=== PATIENT | female | born 1955 | race Caucasian/White ===

== ENCOUNTER 2019-06-21 08:00 | Outpatient (CLI) | payer MEDICARE, OTHER ==
[2019-06-21 12:32] LABS: BASOPHILS % (AUTO) 0.4 %; EOSINOPHILS # (AUTO) 0.2 10^3/uL (0.0-0.7); EOSINOPHILS % (AUTO) 3.1 %; HGB - HEMOGLOBIN 14.7 g/dL (12.0-16.0); LYMPHOCYTES # (AUTO) 1.8 10^3/uL (1.5-3.5); LYMPHOCYTES % (AUTO) 37.1 %; MEAN CORPUSCULAR HEMOGLOBIN 29.8 pg (27.0-31.0); MEAN CORPUSCULAR VOLUME 87.6 fL (81.0-99.0); MEAN PLATELET VOLUME 10.1 fL (7.9-10.8); MONOCYTES # (AUTO) 0.5 10^3/uL (0.0-1.0); MONOCYTES % (AUTO) 11.1 %; NEUTROPHILS # (AUTO) 2.4 10^3/uL (1.5-6.6); NEUTROPHILS % (AUTO) 48.1 %; PLT - PLATELET COUNT 219 10^3/uL (130-450); RED BLOOD COUNT 4.93 10^6/uL (4.20-5.40); RED CELL DISTRIBUTION WIDTH 12.1 % (12.0-15.0); WHITE BLOOD COUNT 4.9 x10^3/uL (4.8-10.8)
[2019-06-21 13:15] LABS: ALBUMIN 4.3 g/dL (3.2-5.5); ALBUMIN/GLOBULIN RATIO 1.4 (1.0-2.2); ALKALINE PHOSPHATASE 78 IU/L (42-121); ALT ALANINE AMINOTRANSFERASE 20 IU/L (10-60); AST ASPARTATE AMINOTRANSFERASE 20 IU/L (10-42); BUN - BLOOD UREA NITROGEN 28 mg/dL (6-20); CALCIUM 9.8 mg/dL (8.5-10.3); CARBON DIOXIDE - CO2 29 mmol/L (21-32); CHLORIDE 95 mmol/L (101-111); CHOL/HDL RATIO 3.6 (<4.4); CHOLESTEROL 190 mg/dL; CREATININE 1.3 mg/dL (0.4-1.0); GFR - MDRD 41 (>89); GLUCOSE 283 mg/dL (70-100); HDL CHOLESTEROL 53 mg/dL; LDL CHOLESTEROL,CALCULATED 107 mg/dL; SODIUM 135 mmol/L (135-145); TOTAL PROTEIN 7.4 g/dL (6.7-8.2); VLDL CHOLESTEROL 30 mg/dL
[2019-06-21 13:37] LABS: HB2 TOTAL 15.5 g/dL; HEMOGLOBIN A1C 1.88 g/dL; HEMOGLOBIN A1C % 13.2 % (4.6-6.2)
== END 2019-06-21 23:59 | disposition home or self-care (01) ==
LOC: LAB.WCP 08:00
PROVIDERS: ATTEND Nurse Practitioner Family
DX: E78.5 Hyperlipidemia, unspecified (principal); E11.9 Type 2 diabetes mellitus without complications; I10 Essential (primary) hypertension
CPT/HCPCS: 36415; 80053; 80061; 83036; 83721; 84443; 85025

== ENCOUNTER 2019-07-05 10:54 | Outpatient (CLI) | payer MEDICARE, OTHER ==
--- NOTE | 2019-07-14 08:56 | Mammography Report ---
Reason: ROUTINE MAMMO Procedure Date: 07/05/2019 Accession Number: [id number] / [id number] Procedure: MGN - Screening Mammo Dig Bilat CPT Code: Final Report FULL RESULT: EXAM: Screening Mammo Dig Bilat DATE: 07/05/2019 11:25 AM CLINICAL HISTORY: Screening encounter. TECHNIQUE: (B) - Bilateral CC and MLO views were obtained. COMPARISON: 06/04/2014. PARENCHYMAL PATTERN: (A) - The breast(s) demonstrate(s) scattered fibroglandular densities. FINDINGS: There are coarse typically benign calcifications. There are no suspicious masses, calcifications, or areas of distortion. IMPRESSION: Benign findings. BI-RADS category 2. RECOMMENDATION: (ANNUAL) - Recommend routine annual screening mammography. BI-RADS CATEGORY: (2) - Benign Findings. STANDARD QUALIFYING STATEMENTS: 1. This examination was not reviewed with the aid of Computer-Aided Detection (CAD). 2. A negative or benign imaging report should not preclude biopsy if clinically suspicious findings are present. 3. Dense breasts may obscure an underlying neoplasm. 4. This examination was reviewed without the aid of 3D breast imaging (tomosynthesis).
== END 2019-07-05 10:55 | disposition home or self-care (01) ==
LOC: DI.N 10:54
DX: Z12.31 Encounter for screening mammogram for malignant neoplasm of breast (principal)
CPT/HCPCS: 77067

== ENCOUNTER 2019-09-27 08:00 | Outpatient (CLI) | payer MEDICARE, OTHER ==
[2019-09-27 19:34] LABS: BILIRUBIN,URINE NEGATIVE (NEGATIVE); GLUCOSE, URINE (UA) >=1000 mg/dL (NEGATIVE); KETONES,URINE (UA) NEGATIVE (NEGATIVE); LEUKOCYTE ESTERASE, URINE NEGATIVE (NEGATIVE); NITRITE,URINE NEGATIVE (NEGATIVE); OCCULT BLOOD,URINE NEGATIVE (NEGATIVE); PROTEIN,URINE NEGATIVE (NEGATIVE); UROBILINOGEN,URINE 0.2 (NORMAL) E.U./dL (NORMAL)
[2019-09-27 19:40] LABS: HB2 TOTAL 14.4 g/dL; HEMOGLOBIN A1C 1.2 g/dL; HEMOGLOBIN A1C % 9.8 % (4.6-6.2)
[2019-09-27 19:41] LABS: BACTERIA,URINE Rare /HPF (None Seen); CLARITY,URINE HAZY (CLEAR); RBC,URINE 0-5 /HPF (0-5); SQUAMOUS EPITHELIAL CELL,UR MOD Squamous (<= Few)
[2019-09-27 19:54] LABS: CALCIUM 9.7 mg/dL (8.5-10.3); CREATININE 1.4 mg/dL (0.4-1.0)
[2019-09-27 20:00] LABS: CREATININE,URINE 149.6 mg/dL; MICROALBUMIN,URINE 0.6 mg/dL (0-300.0)
[2019-09-27 20:39] LABS: ALBUMIN 3.9 g/dL (3.2-5.5); CALCIUM 9.5 mg/dL (8.5-10.3); CREATININE 1.4 mg/dL (0.4-1.0); PHOSPHORUS 3.3 mg/dL (2.5-4.6)
== END 2019-09-27 23:59 | disposition home or self-care (01) ==
LOC: LAB.WCP 08:00
PROVIDERS: ATTEND Nurse Practitioner Family
DX: E11.22 Type 2 diabetes mellitus with diabetic chronic kidney disease (principal); N18.3 Chronic kidney disease, stage 3 (moderate)
CPT/HCPCS: 36415; 80048; 80069; 81001; 82040; 82043; 82570; 83036; 83970; 84100; 87086

== ENCOUNTER 2020-07-16 08:00 | Outpatient (CLI) | payer MEDICARE, OTHER ==
[2020-07-16 18:09] LABS: BASOPHILS % (AUTO) 0.5 %; EOSINOPHILS # (AUTO) 0.2 10^3/uL (0.0-0.7); EOSINOPHILS % (AUTO) 2.5 %; HGB - HEMOGLOBIN 13.3 g/dL (12.0-16.0); LYMPHOCYTES # (AUTO) 1.8 10^3/uL (1.5-3.5); LYMPHOCYTES % (AUTO) 29.8 %; MEAN CORPUSCULAR HEMOGLOBIN 29.9 pg (27.0-31.0); MEAN CORPUSCULAR HGB CONC 33.2 g/dL (32.0-36.0); MEAN CORPUSCULAR VOLUME 90.1 fL (81.0-99.0); MEAN PLATELET VOLUME 9.9 fL (7.9-10.8); MONOCYTES # (AUTO) 0.4 10^3/uL (0.0-1.0); NEUTROPHILS # (AUTO) 3.7 10^3/uL (1.5-6.6); NEUTROPHILS % (AUTO) 59.9 %; PLT - PLATELET COUNT 235 10^3/uL (130-450); RED BLOOD COUNT 4.45 10^6/uL (4.20-5.40); RED CELL DISTRIBUTION WIDTH 12.6 % (12.0-15.0); WHITE BLOOD COUNT 6.1 x10^3/uL (4.8-10.8)
[2020-07-16 18:25] LABS: HEMOGLOBIN A1c% 7.5 % (4.27-6.07)
[2020-07-16 19:41] LABS: ALBUMIN 4.1 g/dL (3.2-5.5); ALBUMIN/GLOBULIN RATIO 1.4 (1.0-2.2); ALKALINE PHOSPHATASE 75 IU/L (42-121); ALT ALANINE AMINOTRANSFERASE 33 IU/L (10-60); AST ASPARTATE AMINOTRANSFERASE 26 IU/L (10-42); BILIRUBIN,TOTAL 0.6 mg/dL (0.2-1.0); BUN - BLOOD UREA NITROGEN 22 mg/dL (6-20); CALCIUM 9.4 mg/dL (8.5-10.3); CARBON DIOXIDE - CO2 28 mmol/L (21-32); CHLORIDE 101 mmol/L (101-111); CHOL/HDL RATIO 2.9 (<4.4); CHOLESTEROL 160 mg/dL; CREATININE 1.5 mg/dL (0.4-1.0); GLUCOSE 234 mg/dL (70-100); HDL CHOLESTEROL 55 mg/dL; LDL CHOLESTEROL,CALCULATED 63 mg/dL; LDL/HDL RATIO 1.1 (<4.4); SODIUM 140 mmol/L (135-145); VLDL CHOLESTEROL 42 mg/dL
== END 2020-07-16 23:59 | disposition home or self-care (01) ==
LOC: LAB.WCP 08:00
PROVIDERS: ATTEND Nurse Practitioner Family
DX: I12.9 Hypertensive chronic kidney disease with stage 1 through stage 4 chronic kidney disease, or unspecified chronic kidney disease (principal); E11.22 Type 2 diabetes mellitus with diabetic chronic kidney disease; N18.30 Chronic kidney disease, stage 3 unspecified; E87.6 Hypokalemia; E78.5 Hyperlipidemia, unspecified
CPT/HCPCS: 36415; 80053; 80061; 83036; 83721; 84443; 85025

== ENCOUNTER 2022-05-01 07:29 | Outpatient (CLI) | payer MEDICARE, OTHER ==
[2022-05-01 12:54] LABS: ALBUMIN 3.9 g/dL (3.2-5.5); ALBUMIN/GLOBULIN RATIO 1.3 (1.0-2.2); BILIRUBIN,TOTAL 0.7 mg/dL (0.2-1.0); CALCIUM 9.8 mg/dL (8.5-10.3); CREATININE 1.4 mg/dL (0.4-1.0); POTASSIUM 4.1 mmol/L (3.5-5.0)
[2022-05-01 19:48] LABS: ESTIMATED AVERAGE GLUCOSE 200 mg/dL (70-100); HEMOGLOBIN A1c% 8.6 % (4.27-6.07)
== END 2022-05-01 07:30 | disposition home or self-care (01) ==
LOC: LAB.N 07:29
PROVIDERS: ATTEND Nurse Practitioner
DX: E11.22 Type 2 diabetes mellitus with diabetic chronic kidney disease (principal); N18.32 Chronic kidney disease, stage 3b
CPT/HCPCS: 36415; 80053; 83036

== ENCOUNTER 2022-06-23 08:14 | Outpatient (CLI) | payer MEDICARE, OTHER ==
[2022-06-23 11:44] LABS: BASOPHILS % (AUTO) 0.5 %; EOSINOPHILS # (AUTO) 0.3 10^3/uL (0.0-0.7); HCT - HEMATOCRIT 41.7 % (37.0-47.0); HGB - HEMOGLOBIN 13.8 g/dL (12.0-16.0); LYMPHOCYTES # (AUTO) 2.2 10^3/uL (1.5-3.5); LYMPHOCYTES % (AUTO) 37.6 %; MEAN CORPUSCULAR HEMOGLOBIN 29.4 pg (27.0-31.0); MEAN CORPUSCULAR HGB CONC 33.1 g/dL (32.0-36.0); MEAN CORPUSCULAR VOLUME 88.9 fL (81.0-99.0); MEAN PLATELET VOLUME 9.7 fL (7.9-10.8); MONOCYTES # (AUTO) 0.5 10^3/uL (0.0-1.0); MONOCYTES % (AUTO) 8.9 %; NEUTROPHILS # (AUTO) 2.7 10^3/uL (1.5-6.6); NEUTROPHILS % (AUTO) 47.7 %; PLT - PLATELET COUNT 250 10^3/uL (130-450); RED BLOOD COUNT 4.69 10^6/uL (4.20-5.40); RED CELL DISTRIBUTION WIDTH 12.4 % (12.0-15.0); WHITE BLOOD COUNT 5.8 x10^3/uL (4.8-10.8)
[2022-06-23 11:59] LABS: CALCIUM 9.6 mg/dL (8.5-10.3); CREATININE 1.5 mg/dL (0.4-1.0); POTASSIUM 3.7 mmol/L (3.5-5.0)
[2022-06-23 13:16] LABS: CREATININE,URINE 530.8 mg/dL; MICROALBUM/CREATININE RATIO,UR 7.5 ug/mg (<30.0)
== END 2022-06-23 08:15 | disposition home or self-care (01) ==
LOC: LAB.N 08:14
PROVIDERS: ATTEND Internal Medicine Nephrology
DX: N18.32 Chronic kidney disease, stage 3b (principal)
CPT/HCPCS: 36415; 80048; 82043; 82570; 85025

== ENCOUNTER 2022-07-29 08:14 | Outpatient (CLI) | payer MEDICARE, OTHER ==
[2022-07-29 12:15] LABS: ESTIMATED AVERAGE GLUCOSE 223 mg/dL (70-100); HEMOGLOBIN A1c% 9.4 % (4.27-6.07)
== END 2022-07-29 08:15 | disposition home or self-care (01) ==
LOC: LAB.N 08:14
PROVIDERS: ATTEND Nurse Practitioner
DX: E11.9 Type 2 diabetes mellitus without complications (principal)
CPT/HCPCS: 36415; 83036

== ENCOUNTER 2022-08-03 13:15 | Outpatient (CLI) | payer MEDICARE, OTHER ==
--- NOTE | 2022-08-04 15:22 | Mammography Report ---
BILATERAL DIGITAL SCREENING MAMMOGRAM 3D/2D: 08/03/2022 CLINICAL: Family history of breast cancer. Routine screening. Comparison is made to exams dated: 07/05/2019 mammogram and 06/04/2014 mammogram - Merged with [facility]. Both breasts are almost entirely fatty (category a/<25% glandular tissue). There are benign masses in both breasts. No significant masses, calcifications, or other findings are seen in either breast. There has been no significant interval change. IMPRESSION: BENIGN There is no mammographic evidence of malignancy. A 1 year screening mammogram is recommended. Based on the Tyrer Cuzick model (a risk assessment model) the patients lifetime risk is 6.5% and her 10 year risk is 3.8%. According to the ACR, ACS, and NCCN guidelines, an annual breast MRI exam ivonne g with mammogram is recommended if the patients lifetime risk is 20% or greater. This exam was interpreted at Station ID: [id number]. NOTE: For mammograms, a report in lay terms will be sent to the patient. Approximately 15% of breast malignancies will not be visualized mammographically. In the management of a palpable breast mass, a negative mammogram must not discourage biopsy of a clinically suspicious lesion. Electronically Signed By: Natan schneider/vandana:08/03/2022 14:30:14 ACR BI-RADS Category 2: Benign Finding(s) 3342F PARENCHYMAL PATTERN: (F) - The breast(s) demonstrate(s) diffuse fatty replacement. BI-RADS CATEGORY: (2) - 2 RECOMMENDATION: (ANNUAL) - Recommend routine annual screening mammography. 20230804 1 year screening LATERALITY: (B)
== END 2022-08-03 13:16 | disposition home or self-care (01) ==
LOC: DI.N 13:15
DX: Z12.31 Encounter for screening mammogram for malignant neoplasm of breast (principal); Z80.3 Family history of malignant neoplasm of breast

== ENCOUNTER 2022-08-03 15:42 | Outpatient (CLI) | payer MEDICARE, OTHER ==
--- NOTE | 2022-08-03 16:09 | XRAY Report ---
PROCEDURE: Foot 3 View LT INDICATIONS: PAIN IN LEFT FOOT TECHNIQUE: 3 views of the foot were acquired. COMPARISON: None. FINDINGS: Bones: There is a subtle nondisplaced fracture at the fifth proximal phalangeal shaft that may extend into the interphalangeal joint. A chronic healed distal fifth metatarsal fracture is seen with mild residual deformity. No suspicious bony lesions. Small plantar calcaneal enthesophyte. Soft tissues: Soft tissue edema is seen in the forefoot. IMPRESSION: 1.Subtle nondisplaced fracture of the fifth proximal phalanx which may extend into the interphalangea l joint without significant step-off. 2.Chronic healed fifth metatarsal fracture. Reviewed by: Albert Roach MD on 08/03/2022 4:08 PM PST Approved by: Albert Roach MD on 08/03/2022 4:[address] [facility] Station ID: [id number]
== END 2022-08-03 15:43 | disposition home or self-care (01) ==
LOC: DI 15:42
PROVIDERS: ATTEND Physician Assistant
DX: S92.515A Nondisplaced fracture of proximal phalanx of left lesser toe(s), initial encounter for closed fracture (principal); S92.352D Displaced fracture of fifth metatarsal bone, left foot, subsequent encounter for fracture with routine healing

== ENCOUNTER 2022-11-23 10:45 | Outpatient (CLI) | payer MEDICARE, OTHER ==
[2022-11-23 21:42] LABS: ESTIMATED AVERAGE GLUCOSE 134 mg/dL (70-100); HEMOGLOBIN A1c% 6.3 % (4.27-6.07)
== END 2022-11-23 10:46 | disposition home or self-care (01) ==
LOC: LAB.N 10:45
PROVIDERS: ATTEND Nurse Practitioner
DX: E11.9 Type 2 diabetes mellitus without complications (principal)
CPT/HCPCS: 36415; 83036

== ENCOUNTER 2023-03-01 17:00 | Outpatient (CLI) | payer MEDICARE, OTHER ==
[2023-03-01] MEDS ORDERED: GADOBUTROL 10 MMOL/10 ML VIAL ONE (17:16)
[2023-03-01 17:46] LABS: CREATININE 2.3 mg/dL (0.4-1.0)
[2023-03-01] MEDS ORDERED: GADOBUTROL 10 MMOL/10 ML VIAL IVP ONE (18:20)
--- NOTE | 2023-03-01 19:32 | MRI Report ---
PROCEDURE: ANGIO HEAD WO INDICATIONS: SLURRED SPEECH TECHNIQUE: Noncontrast axial 3-D [id number] MR angiogram, with 3-dimensional maximum intensity projection (M IP) reformats of the internal carotid arteries and posterior circulation then performed. COMPARISON: None. FINDINGS: Image quality: Excellent. Anterior circulation: Intracranial internal carotid arteries demonstrate normal size and intralumina l flow signal. The flow within the paired anterior cerebral arteries is normal and symmetric. The f low within the middle cerebral arteries is normal and symmetric. The anterior communicating artery i s seen. No stenoses, occlusions, or aneurysms. Posterior circulation: Visualized portions of the vertebral arteries demonstrate normal caliber, and join to form a normal appearing basilar artery. The flow within the posterior cerebral arteries is normal and symmetric. No stenoses, occlusions, or aneurysms. Of note, the vertebral arteries at the posterior inferior cerebellar artery origins are not included in the ehaxp-zp-ghfp of this exam. Brain MR indicates a tiny infarct in the right PICA distribution. IMPRESSION: 1. Normal MR angiogram of the brain given [id number]. 2. The origin of the right PICA (the distribution of a small infarct) was not included in the field-o f-view. Reviewed by: Brittanie Stubbs MD on 03/01/2023 6:30 PM P[facility] Approved by: Brittanie Stubbs MD on 03/01/2023 6:30 PM [facility] Station ID: [id number]
--- NOTE | 2023-03-01 19:33 | MRI Report ---
PROCEDURE: BRAIN W/WO INDICATIONS: SLURRED SPEECH CONTRAST: gadavist 7.5ml TECHNIQUE: Noncontrast axial T1 spin echo, axial T2 fast spin echo, sagittal and axial FLAIR, coronal T2 fast sp in echo, axial gradient echo, axial diffusion and ADC through the brain. After the administration of contrast, axial and coronal T1 spin echo with fat saturation through the brain. COMPARISON: None. FINDINGS: Image quality: Excellent. CSF spaces: Basal cisterns are patent. No extra-axial fluid collections. Ventricles are normal in size and shape. Brain: No midline shift. No intracranial bleeds or masses. No abnormal intracranial enhancement. There is cerebral volume loss for age. There is no significant periventricular white matter chronic small vessel ischemic changes. The brainstem appears normal. Diffusion imaging demonstrates a single tiny linear focus of restricted diffusion in the right cerebe llar hemisphere measuring about 0.8 cm in maximal diameter. There are no associated hemosiderin depos its and no abnormal enhancement. No other areas of restricted diffusion to suggest acute ischemia. No chronic ischemic insults. Normal intravascular flow voids are present. Skull and face: Calvarial marrow is normal in signal. Orbits appear normal. Sinuses: Sinuses and mastoids appear clear. IMPRESSION: 1. 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 Given patient's symptoms which are nonconcordant, this may be incidental. 2. Otherwise age-appropriate brain volume with no significant chronic microvascular ischemic change. 3. No suspicious enhancement. 4. Findings called to provider as requested at [address] [place] daylight time. Provider unavailable. Reviewed by: Brittanie Stubbs MD on 03/01/2023 6:31 PM [facility] Approved by: Brittanie Stubbs MD on 03/01/2023 6:31 PM [facility] Station ID: [id number]
== END 2023-03-01 17:01 | disposition home or self-care (01) ==
LOC: DI 17:00
PROVIDERS: ATTEND Nurse Practitioner
DX: I63.9 Cerebral infarction, unspecified (principal); R47.81 Slurred speech
CPT/HCPCS: 36415; 70544; 70553; 82565; A9585

== ENCOUNTER 2023-03-08 07:42 | Outpatient (CLI) | payer MEDICARE, OTHER ==
[2023-03-08 12:36] LABS: CREATININE,URINE 265.9 mg/dL; MICROALBUM/CREATININE RATIO,UR 4.5 ug/mg (<30.0); MICROALBUMIN,URINE 1.2 mg/dL (0-300.0)
[2023-03-08 13:07] LABS: CHOL/HDL RATIO 2.6 (<4.4); CHOLESTEROL 132 mg/dL; HDL CHOLESTEROL 50 mg/dL; LDL CHOLESTEROL,CALCULATED 68 mg/dL; LDL/HDL RATIO 1.4 (<4.4); TRIGLYCERIDES 71 mg/dL; VLDL CHOLESTEROL 14 mg/dL
[2023-03-08 13:22] LABS: ESTIMATED AVERAGE GLUCOSE 111 mg/dL (70-100); HEMOGLOBIN A1c% 5.5 % (4.27-6.07)
== END 2023-03-08 07:43 | disposition home or self-care (01) ==
LOC: LAB.N 07:42
PROVIDERS: ATTEND Nurse Practitioner
DX: E11.22 Type 2 diabetes mellitus with diabetic chronic kidney disease (principal); E78.2 Mixed hyperlipidemia
CPT/HCPCS: 36415; 80061; 82043; 82570; 83036; 83721

== ENCOUNTER 2023-03-23 14:34 | Outpatient (CLI) | payer MEDICARE, OTHER | END 2023-03-23 14:35 | disposition home or self-care (01) | LOC: MAC.MOP 14:34 | PROVIDERS: ATTEND Nurse Practitioner | DX: I63.9 Cerebral infarction, unspecified (principal); R00.2 Palpitations | CPT/HCPCS: 93246 ==

== ENCOUNTER 2023-04-06 16:35 | Emergency (ER) | payer MEDICARE, OTHER ==
[2023-04-06 16:52] VITALS: BP 141/70; O2SAT 98
--- OUTSIDE RECORDS SUMMARY | 2023-04-06 16:53 | EXTERNAL MEDICAL SUMMARY RPT | Continuity of Care Document ---
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15 [facility]:[address] [facility] kar[facility] Problems date description facility 2023-02-15 00:00 Nausea and vomiting [facility] 2023-02-16 00:00 Gastroenteritis [facility] 2023-02-18 00:00 Hypertension [facility] 2023-02-18 00:00 Intractable vomiting with nause a [facility] 2023-02-20 08:36 Noninfective gastroe nteritis and colitis, unspecified [facility] 2023-02-20 09:45 Noninfective gastroe nteritis and colitis, unspecified [facility] Procedures date description facility 2023-02-18 00:00 CT abdomen pelvis w [facility] Results/Labs test date facility value unit notes Social History date description facility 2023-02-15 00:00 Never smoked tobacco (finding) [facility] 2023-02-16 00:00 Never smoked tobacco (finding) [facility] 2023-02-18 00:00 Never smoked tobacco (finding) [facility] Vital Signs date measurement value units 2023-02-15 00:00 BMI 28.5 kg/m2 2023-02-15 00:00 BP_diastolic 64 mmHg 2023-02-15 00:00 BP_systolic 142 mmHg 2023-02-15 00:00 heart_rate 66 /min 2023-02-15 00:00 height_metric 162.56 cm 2023-02-15 00:00 height_standard 64 in 2023-02-15 00:00 o2_saturation 99 % 2023-02-15 00:00 respiration_rate 18 /min 2023-02-15 00:00 temperature_metric 36.89 C 2023-02-15 00:00 temperature_standard 98.4 F 2023-02-15 00:00 weight_metric 75.29 kg 2023-02-15 00:00 weight_standard 165.99 lb 2023-02-16 00:00 BMI 27.6 kg/m2 2023-02-16 00:00 BP_diastolic 58 mmHg 2023-02-16 00:00 BP_systolic 162 mmHg 2023-02-16 00:00 heart_rate 59 /min 2023-02-16 00:00 height_metric 165.1 cm 2023-02-16 00:00 height_standard 65 in 2023-02-16 00:00 o2_saturation 98 % 2023-02-16 00:00 respiration_rate 20 /min 2023-02-16 00:00 temperature_metric 37.28 C 2023-02-16 00:00 temperature_standard 99.1 F 2023-02-16 00:00 weight_metric 75.29 kg 2023-02-16 00:00 weight_standard 165.99 lb 2023-02-18 00:00 BMI 28.5 kg/m2 2023-02-18 00:00 BP_diastolic 85 mmHg 2023-02-18 00:00 BP_systolic 213 mmHg 2023-02-18 00:00 heart_rate 62 /min 2023-02-18 00:00 height_metric 162.56 cm 2023-02-18 00:00 height_standard 64 in 2023-02-18 00:00 o2_saturation 98 % 2023-02-18 00:00 respiration_rate 20 /min 2023-02-18 00:00 temperature_metric 37.11 C 2023-02-18 00:00 temperature_standard 98.8 F 2023-02-18 00:00 weight_metric 75.29 kg 2023-02-18 00:00 weight_standard 165.99 lb 2023-02-20 00:00 BP_diastolic 66 mmHg 2023-02-20 00:00 BP_systolic 140 mmHg 2023-02-20 00:00 heart_rate 68 /min 2023-02-20 00:00 o2_saturation 96 % 2023-02-20 00:00 respiration_rate 17 /min 2023-02-20 00:00 temperature_metric 36.56 C 2023-02-20 00:00 temperature_standard 97.8 F
--- NOTE | 2023-04-06 16:54 | ED Physician Documentation ---
History of Present Illness - Stated complaint Stated Complaint: left leg swelling - Chief complaint Chief Complaint: Ext Problem - Additonal information Additional information: 68-year-old female presents emergency department for evaluation of left lower leg swelling and ecchymosis. Reports that 1 week ago a 2 x 4 fell on her leg when she was helping her with a construction project. She subsequently developed some swelling and ecchymosis of the anterior leg. She went to a local walk-in clinic yesterday where they felt that she may be developing a superficial infection over the area of hematoma and she was started on Keflex but over the last 24 hours bruising has deepened down to the ankle region. She has some mild pain with ambulation. Historically the patient has a history of hypertension and previous CVA. She was on Plavix but saw her neurologist yesterday who recommended she discontinue the Plavix and just remain on the daily aspirin. Patient reports that since starting the Keflex the redness on the lower leg has improved. 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 : None HEENT: None Psych: None Musculoskeletal: None Derm: None - Past Surgical History Past Surgical History: Yes General: Cholecystectomy, Appendectomy Ortho: Other /SHUTTLE INSPECTOR: section - Present Medications Home Medications: Ambulatory Orders Medication Instructions Recorded Confirmed Aspirin Chewable [[facility] [place] 81 mg PO DAILY 04/06/23 Aspirin] Atorvastatin [Lipitor] 40 mg PO DAILY 04/06/23 Ciprofloxacin HCl [Cipro] 500 mg PO BID 04/06/23 lisinopriL [Lisinopril] 10 mg PO DAILY 04/06/23 - Allergies Allergies/Adverse Reactions: Allergies Allergy/AdvReac Type Severity Reaction Status Date / Time No Known Drug Allergies Allergy Verified 04/06/23 16:45 - Social History Does the pt smoke?: No Smoking Status: Never smoker Does the pt drink ETOH?: No Does the pt have substance abuse?: No - Immunizations Immunizations are current?: Yes - POLST Patient has POLST: No PD ED PE NORMAL - General General: Alert and oriented X 3, No acute distress - Cardiac Cardiac: RRR, No murmur - Abdomen Abdomen: Normal bowel sounds, Soft, Non tender, Non distended - Derm Derm: Other (Significant ecchymosis and bruising on the left lower anterior leg with palpable hematoma felt just lateral to the mid mariano. Mild erythema. 2+ DP pulse. No posterior calf pain tenderness.) - Extremities Extremities: No deformity, Normal ROM s pain, No calf tenderness / cord. No: No tenderness to palpate - Neuro Neuro: Alert and oriented X 3 Eye Opening: Spontaneous Motor: Obeys Commands Verbal: Oriented GCS Score: 15 Results - Vitals Vitals: Vital Signs - 24 hr 04/06/23 16:39 Temperature 36.7 C Heart Rate 88 Respiratory 18 Rate Blood Pressure 141/70 H O2 Saturation 98 Oxygen O2 Source Room air - Rads (name of study) left leg us Relevant Findings:: Final report received (negative for dvt; simple fluid collection anterior lower leg 3X2 cm) tib fib left leg Relevant Findings:: EMP independent interpretation of test (no acute fracture, osseous lesion or deformity) PD Medical Decision Making - ED course Complexity details: reviewed results, re-evaluated patient, d/w patient ED course: 68-year-old female presents emergency department for evaluation of 1 week left lower extremity swelling and hematoma. A 2 x 4 fell on her leg when she was helping her with construction. She was previously on Plavix until yesterday for a previous CVA. On exam there is extensive lower extremity ecchymosis as well as a palpable hematoma along the mid mariano region. She was started on cephalexin by an urgent care provider yesterday for concerns of redness surrounding the hematoma which the patient results has improved after a few doses of antibiotic. Patient was concerned that with the lower extremity edema that she could have developed a DVT. Ultrasound today was negative for findings of DVT. It does confirm a 3 x 2 cm simple fluid collection likely the hematoma. I discussed with patient the routine usual management of hematomas as well as the emergent return precautions for failure symptoms to resolve for development of any infection. Departure - Departure Clinical Impression: Hematoma of left lower extremity Qualifiers: Encounter type: initial encounter Qualified Code(s): S80.12XA - Contusion of left lower leg, initial encounter Condition: Stable Record reviewed to determine appropriate education?: Yes Instructions: ED Hematoma Comments: The ultrasound of your lower leg did not show a blood clot. The x-ray, as interpreted by myself, does not show any broken bones or foreign bodies. The swelling and bruising you have is due to trauma and you have developed a hematoma which is a collection of fluid just beneath the skin. Most hematomas will spontaneously resolve over the course of several weeks. You can continue your usual medications. I would recommend elevating the leg at night when out of bed as this may help with some of that dependent edema you have developed. Return immediately to the ER if you find that you are having worsening symptoms, develop any fevers, have redness or red streaking on your leg or have any drainage that develops from your hematoma. Forms: PCP List
--- NOTE | 2023-04-06 17:34 | XRAY Report ---
PROCEDURE: Tib/Fib LT INDICATIONS: Trauma, pain TECHNIQUE: 2 views of the tibia and fibula were acquired. COMPARISON: None. FINDINGS: Bones: No fractures or dislocations. No suspicious bony lesions. Soft tissues: Localized soft tissue swelling noted in the mid anterior mariano. No associated fracture or lytic lesion IMPRESSION: No acute bony abnormality. Reviewed by: Sb Rodriguez MD on 04/06/2023 4:32 PM AKKAREN Approved by: Sb Rodriguez MD on 04/06/2023 4:32 PM [facility] Station ID: [id number]
--- NOTE | 2023-04-06 17:55 | Ultrasound Report ---
PROCEDURE: Duplex Ext Veins Left INDICATIONS: eval for dvt TECHNIQUE: Real-time imaging, as well as color and pulse Doppler interrogation, were performed of the lower extr emity deep veins from the inguinal ligament to the popliteal fossa. COMPARISON: None. FINDINGS: The deep veins are normally compressible, and free of intraluminal thrombus. Color and pu lse Doppler demonstrate normal phasic intraluminal flow. There is normal augmentation response to di stal compression maneuver. At the site of injury involving the left lower leg, there is a simple fluid collection seen that sorin ures 2.9 x 1.8 x 2.3 cm, without abnormal surrounding vascularity. IMPRESSION: No findings of deep venous thrombosis are seen. Likely seroma seen at the site of injury. Reviewed by: Didier Elmore MD on 04/06/2023 4:53 PM [facility] Approved by: Didier Elmore MD on 04/06/2023 4:53 PM [facility] Station ID: [id number]
== END 2023-04-06 17:42 | disposition home or self-care (01) ==
LOC: ED 16:35
DX: S80.12XA Contusion of left lower leg, initial encounter (principal); W20.8XXA Other cause of strike by thrown, projected or falling object, initial encounter; I10 Essential (primary) hypertension; E78.00 Pure hypercholesterolemia, unspecified; E11.9 Type 2 diabetes mellitus without complications; Z79.82 Long term (current) use of aspirin; Z79.899 Other long term (current) drug therapy
CPT/HCPCS: 99283; 99284

== ENCOUNTER 2023-04-08 08:31 | Outpatient (CLI) | payer MEDICARE, OTHER ==
[2023-04-08 12:40] LABS: CALCIUM 9.7 mg/dL (8.5-10.3); CREATININE 1.4 mg/dL (0.6-1.3); POTASSIUM 4.1 mmol/L (3.5-4.5)
== END 2023-04-08 08:32 | disposition home or self-care (01) ==
LOC: LAB.N 08:31
PROVIDERS: ATTEND Internal Medicine Nephrology
DX: E11.9 Type 2 diabetes mellitus without complications (principal); N05.9 Unspecified nephritic syndrome with unspecified morphologic changes
CPT/HCPCS: 36415; 80048

== ENCOUNTER 2023-04-17 09:42 | Outpatient (CLI) | payer MEDICARE, OTHER ==
--- NOTE | 2023-04-19 16:23 | MRI Report ---
PROCEDURE: ANGIO NECK W/WO INDICATIONS: CVA CONTRAST: GADAVIST 8.2 ML TECHNIQUE: Axial and sagittal balanced GE through the neck. Coronal dynamic MRA after the administration of con trast in the arterial and venous phases, with rotating 3-dimensional maximum intensity projection (MD P) reformats constructed from subtraction images. COMPARISON: MR brain and MRA 03/01/2023 FINDINGS: Image quality: Excellent. Carotid system: Great vessels demonstrate a conventional anatomy as they arise from the aortic arch. The origins of the common carotid arteries appear normal. The calibers and courses of the common c arotid arteries are likewise normal. The carotid bifurcations appear normal bilaterally. The athletic training internship al carotid arteries are widely patent up to the [place]. Posterior circulation: Slight left vertebral artery dominance. The origins of the vertebral arteries are unremarkable. The more superior portions of the vertebral arteries demonstrate normal course and caliber. Vertebral arteries join to form a normal appearing basilar artery. Miscellaneous: Subclavian arteries are patent throughout. Pre-contrast images through the neck demo nstrate no soft tissue abnormalities. IMPRESSION: There are no areas of hemodynamically significant stenosis, vascular occlusion or aneurysmal dilation within the neck vasculature. Reviewed by: Shonda Flores MD on 04/19/2023 4:21 PM PDT Approved by: Shonda Flores MD on 04/19/2023 4:21 PM PDT Station ID: [id number]
== END 2023-04-17 09:43 | disposition home or self-care (01) ==
LOC: DI 09:42
PROVIDERS: ATTEND Psychiatry & Neurology Neurology
DX: I63.9 Cerebral infarction, unspecified (principal)
CPT/HCPCS: 70549; A9585

== ENCOUNTER 2023-05-24 08:15 | Outpatient (CLI) | payer MEDICARE, OTHER ==
[2023-05-24 12:50] LABS: ALBUMIN 4.2 g/dL (3.2-5.5); ALBUMIN/GLOBULIN RATIO 1.6 (1.0-2.2); BILIRUBIN,TOTAL 0.5 mg/dL (0.2-1.0); CALCIUM 9.9 mg/dL (8.5-10.3); CREATININE 1.6 mg/dL (0.6-1.3); POTASSIUM 4.1 mmol/L (3.5-4.5); TOTAL PROTEIN 6.8 g/dL (6.4-8.9)
== END 2023-05-24 08:16 | disposition home or self-care (01) ==
LOC: LAB.N 08:15
PROVIDERS: ATTEND Nurse Practitioner
DX: N17.9 Acute kidney failure, unspecified (principal); R57.9 Shock, unspecified
CPT/HCPCS: 36415; 80053

== ENCOUNTER 2023-06-08 07:59 | Outpatient (CLI) | payer MEDICARE, OTHER ==
[2023-06-08 12:09] LABS: ESTIMATED AVERAGE GLUCOSE 143 mg/dL (70-100); HEMOGLOBIN A1c% 6.6 % (4.27-6.07)
== END 2023-06-08 08:00 | disposition home or self-care (01) ==
LOC: LAB.N 07:59
PROVIDERS: ATTEND Nurse Practitioner
DX: E11.9 Type 2 diabetes mellitus without complications (principal)
CPT/HCPCS: 36415; 83036

== ENCOUNTER 2023-08-04 12:11 | Outpatient (CLI) | payer MEDICARE, OTHER ==
--- NOTE | 2023-08-05 10:19 | Mammography Report ---
BILATERAL DIGITAL SCREENING MAMMOGRAM 3D/2D: 08/04/2023 CLINICAL: Routine screening. Family history of breast cancer. Comparison is made to exams dated: 08/03/2022 mammogram, 07/05/2019 mammogram, and 06/04/2014 mammog [facility]. There are scattered areas of fibroglandular density in both breasts (category b / 25%-50% glandular t issue). No significant masses, calcifications, or other findings are seen in either breast. There has been no significant interval change. IMPRESSION: NEGATIVE There is no mammographic evidence of malignancy. A 1 year screening mammogram is recommended. Based on the Tyrer Cuzick model (a risk assessment model) the patients lifetime risk is 11.7% and he r 10 year risk is 7.5%. According to the ACR, ACS, and NCCN guidelines, an annual breast MRI exam sony ng with mammogram is recommended if the patients lifetime risk is 20% or greater. This exam was interpreted at Station ID: [id number]. NOTE: For mammograms, a report in lay terms will be sent to the patient. Approximately 15% of breast malignancies will not be visualized mammographically. In the management of a palpable breast mass, a negative mammogram must not discourage biopsy of a clinically suspicious lesion. Electronically Signed By: Cynthia Santa M.D., PH.D eb/penrad:08/04/2023 21:22:23 letter sent: No_Letter ACR BI-RADS Category 1: Negative 3341F PARENCHYMAL PATTERN: (A) - The breast(s) demonstrate(s) scattered fibroglandular densities. BI-RADS CATEGORY: (1) - 1 Mammogram [id number] 1 year screening LATERALITY: (B)
== END 2023-08-04 12:12 | disposition home or self-care (01) ==
LOC: DI.N 12:11
DX: Z12.31 Encounter for screening mammogram for malignant neoplasm of breast (principal); Z80.3 Family history of malignant neoplasm of breast; R92.323 Mammographic fibroglandular density, bilateral breasts

== ENCOUNTER 2023-10-21 07:12 | Outpatient (CLI) | payer MEDICARE, OTHER ==
[2023-10-21 12:03] LABS: ESTIMATED AVERAGE GLUCOSE 174 mg/dL (70-100); HEMOGLOBIN A1c% 7.7 % (4.27-6.07)
== END 2023-10-21 07:13 | disposition home or self-care (01) ==
LOC: LAB.N 07:12
PROVIDERS: ATTEND Nurse Practitioner
DX: E11.8 Type 2 diabetes mellitus with unspecified complications (principal)
CPT/HCPCS: 36415; 83036